=== PATIENT | male | born 1960 | race Caucasian/White ===

== ENCOUNTER 2017-08-09 10:01 | Emergency (ER) | payer BC ==
[~2017-08-09] VITALS: Ht 182.9 cm; Wt 72.6 kg
[2017-08-09 10:11] VITALS: BP 141/92
[2017-08-09] MEDS ORDERED: LORAZEPAM 0.5 MG TABLET PO ONE (10:30)
[2017-08-09] MEDS ORDERED: LORAZEPAM 1 MG TABLET ONE (10:51)
--- NOTE | 2017-08-09 11:02 | NUR ---
WITNESSED WASTE 0.5 WITH BRENDON GROVES RN Addendum: 08/09/17 at 1102 by AISSATOU 0.5MG
== END 2017-08-09 11:03 | disposition home or self-care (01) ==
LOC: ER 10:02
DX: F41.0 Panic disorder [episodic paroxysmal anxiety] (principal); I10 Essential (primary) hypertension; X58.XXXA Exposure to other specified factors, initial encounter; Y93.89 Activity, other specified; Y92.89 Other specified places as the place of occurrence of the external cause; Y99.8 Other external cause status
CPT/HCPCS: 99284; A4606; Z7610